=== PATIENT | female | born 1965 | race American Indian/Alaskan Native ===

== ENCOUNTER 2017-04-13 09:28 | Emergency (ER) | payer OTHER ==
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
[2017-04-13] MEDS ORDERED: NORCO 5/325 PO ONE (10:57)
--- NOTE | 2017-04-13 11:35 | XRay Report ---
RIGHT ANKLE THREE VIEWS: 04/13/17 09:28:00 CLINICAL: Trauma and pain. FINDINGS: The ankle mortise is intact. No fracture or dislocation. There is an os subfibulare at the lateral malleolus. Mild medial and lateral soft tissue swelling . No soft tissue air or foreign body. IMPRESSION: Soft tissue injury and otherwise normal.
--- NOTE | 2017-04-13 11:36 | XRay Report ---
RIGHT FEMUR TWO VIEWS: 04/13/17 09:28:00 CLINICAL: Right leg pain. FINDINGS: Normal alignment at the hip and knee. The right hip joint is normal. Mild narrowing of the medial knee joint but otherwise normal knee. No fracture. Normal soft tissues. IMPRESSION: Negative study
--- NOTE | 2017-04-13 11:37 | XRay Report ---
RIGHT FOOT THREE VIEWS: 04/13/17 10:08:00 CLINICAL: Trauma and pain. FINDINGS: No fracture or dislocation. Hallux valgus deformity. Normal joints and soft tissues. IMPRESSION: Normal.
--- NOTE | 2017-04-13 11:38 | XRay Report ---
RIGHT KNEE THREE VIEWS: 04/13/17 09:28:00 CLINICAL: Trauma and pain. FINDINGS: Normal bones, joints and soft tissues. No fracture or dislocation. No joint effusion. IMPRESSION: Normal.
--- NOTE | 2017-04-13 11:38 | XRay Report ---
LEFT SHOULDER THREE VIEWS: 04/13/17 09:28:00 CLINICAL: Trauma and pain. FINDINGS: No fracture or dislocation. Normal glenohumeral joint. Normal AC joint. The soft tissues are normal. IMPRESSION: Normal.
[2017-04-13 12:38] VITALS: BP 167/95
== END 2017-04-13 12:38 | disposition home or self-care (01) ==
LOC: ED 09:28
DX: M25.512 Pain in left shoulder (principal); M79.604 Pain in right leg; I10 Essential (primary) hypertension; V43.52XA Car driver injured in collision with other type car in traffic accident, initial encounter; W22.10XA Striking against or struck by unspecified automobile airbag, initial encounter; Y93.89 Activity, other specified; Y99.8 Other external cause status; Y92.488 Other paved roadways as the place of occurrence of the external cause
CPT/HCPCS: 36415; 84702; 93005; 93010; 99284